=== PATIENT | female | born 1970 | race Two or more races ===

== ENCOUNTER 2018-03-27 09:55 | Emergency (ER) | payer OTHER ==
[~2018-03-27] VITALS: Ht 162.6 cm; Wt 59.0 kg
[2018-03-27] MEDS ORDERED: SIMVASTATIN5 MG PO (10:17)
[2018-03-27] MEDS ORDERED: METOPROLOL SUCC50 MG PO (10:17)
== END 2018-03-27 15:49 | disposition home or self-care (01) ==
LOC: ER 09:55
DX: K29.70 Gastritis, unspecified, without bleeding (principal)

== ENCOUNTER 2019-01-17 12:02 | Emergency (ER) | payer OTHER ==
[~2019-01-17] VITALS: Ht 160 cm; Wt 61.7 kg
[~2019-01-17 12:02] MED LIST: METOPROLOL SUCC50 MG PO; SIMVASTATIN5 MG PO
== END 2019-01-17 20:14 | disposition home or self-care (01) ==
LOC: ER 12:02
DX: K29.70 Gastritis, unspecified, without bleeding (principal)

== ENCOUNTER 2021-11-17 09:17 | Emergency (ER) | payer OTHER ==
[~2021-11-17] VITALS: Ht 162.6 cm; Wt 63.5 kg
[2021-11-17] MEDS ORDERED: NIFEDIPINE20 MG ×2 (09:30→09:31)
[2021-11-17] MEDS ORDERED: PLAVIX75 MG PO (09:30)
[2021-11-17] MEDS ORDERED: SKELAGESIC PO (14:08)
[2021-11-17] MEDS ORDERED: ORPHENADRINE C100 MG PO (14:08)
== END 2021-11-17 14:40 | disposition home or self-care (01) ==
LOC: ER 09:17
DX: G43.809 Other migraine, not intractable, without status migrainosus (principal); G44.89 Other headache syndrome; E86.0 Dehydration; M54.2 Cervicalgia; M62.838 Other muscle spasm; Z03.818 Encounter for observation for suspected exposure to other biological agents ruled out

== ENCOUNTER 2022-01-02 09:59 | Emergency (ER) | payer OTHER ==
[~2022-01-02] VITALS: Ht 162.6 cm; Wt 63.5 kg
[~2022-01-02 09:59] MED LIST changes: +NIFEDIPINE20 MG; +ORPHENADRINE C100 MG PO; +PLAVIX75 MG PO; +SKELAGESIC PO
[2022-01-02] MEDS ORDERED: NIFEDIPINE20 MG ×2 (10:27→10:28)
[2022-01-02] MEDS ORDERED: TOPROL XL100 MG PO (10:27)
[2022-01-02] MEDS ORDERED: SIMVASTATIN10 MG PO (10:28)
== END 2022-01-02 13:34 | disposition home or self-care (01) ==
LOC: ER 09:59
DX: N39.0 Urinary tract infection, site not specified (principal); G43.909 Migraine, unspecified, not intractable, without status migrainosus; Z88.0 Allergy status to penicillin

== ENCOUNTER 2022-05-12 10:02 | Emergency (ER) | payer OTHER ==
[~2022-05-12] VITALS: Ht 162.6 cm; Wt 63.5 kg
[~2022-05-12 10:02] MED LIST changes: +SIMVASTATIN10 MG PO; +TOPROL XL100 MG PO
[2022-05-12] MEDS ORDERED: NIFE60TA3 PO (10:24)
[2022-05-12] MEDS ORDERED: TOPROL XL200 MG PO (10:24)
[2022-05-12] MEDS ORDERED: NIFEDIPINE10 MG (10:25)
[2022-05-12] MEDS ORDERED: PLAVIX75 MG PO (10:25)
== END 2022-05-12 12:35 | disposition home or self-care (01) ==
LOC: ER 10:02
DX: M25.512 Pain in left shoulder (principal); Z88.0 Allergy status to penicillin; Z91.041 Radiographic dye allergy status

== ENCOUNTER 2022-08-14 10:32 | Emergency (ER) | payer OTHER ==
[~2022-08-14] VITALS: Ht 162.6 cm; Wt 63.5 kg
[~2022-08-14 10:32] MED LIST changes: +NIFE60TA3 PO; +NIFEDIPINE10 MG; +TOPROL XL200 MG PO
[2022-08-14] MEDS ORDERED: HYDROCHLOROTH12.5 MG PO (11:05)
[2022-08-14] MEDS ORDERED: CARVEDILOL ER40 MG PO (11:05)
== END 2022-08-14 14:57 | disposition home or self-care (01) ==
LOC: ER 10:32
DX: R19.7 Diarrhea, unspecified (principal); Z88.0 Allergy status to penicillin; Z91.041 Radiographic dye allergy status; Z88.2 Allergy status to sulfonamides; Z91.013 Allergy to seafood; Z88.6 Allergy status to analgesic agent; I10 Essential (primary) hypertension; Z86.72 Personal history of thrombophlebitis; M62.830 Muscle spasm of back

== ENCOUNTER 2022-09-18 07:34 | Emergency (ER) | payer OTHER ==
[~2022-09-18] VITALS: Ht 162.6 cm; Wt 63.5 kg
[~2022-09-18 07:34] MED LIST changes: +CARVEDILOL ER40 MG PO; +CARVEDILOL12.5 MG; +COZAAR50 MG PO; +HYDROCHLOROTH12.5 MG PO; +SIMVASTATIN40 MG PO; +TOPROL XL50 M1 PO
[2022-09-18] MEDS ORDERED: INTESTINEX680 M1 PO (11:49)
[2022-09-18] MEDS ORDERED: CETIRIZINE HCL10 MG PO (11:49)
[2022-09-18] MEDS ORDERED: CLINDAMYCIN HC300 MG PO (11:49)
== END 2022-09-18 11:51 ==
LOC: ER 07:34
DX: L03.112 Cellulitis of left axilla (principal); Z86.718 Personal history of other venous thrombosis and embolism; Z86.16 Personal history of COVID-19

== ENCOUNTER 2022-09-25 12:04 | Emergency (ER) | payer OTHER ==
[~2022-09-25] VITALS: Ht 162.6 cm; Wt 63.5 kg
[~2022-09-25 12:04] MED LIST changes: +CETIRIZINE HCL10 MG PO; +CLINDAMYCIN HC300 MG PO; +INTESTINEX680 M1 PO
== END 2022-09-25 18:15 | disposition home or self-care (01) ==
LOC: ER 12:04
DX: K52.9 Noninfective gastroenteritis and colitis, unspecified (principal); I10 Essential (primary) hypertension; Z88.0 Allergy status to penicillin; Z91.041 Radiographic dye allergy status

== ENCOUNTER 2022-10-22 07:37 | Emergency (ER) | payer OTHER ==
[~2022-10-22] VITALS: Ht 162.6 cm; Wt 63.5 kg
== END 2022-10-22 11:45 | disposition home or self-care (01) ==
LOC: ER 07:37
DX: B34.9 Viral infection, unspecified (principal); I10 Essential (primary) hypertension; Z88.0 Allergy status to penicillin; Z91.041 Radiographic dye allergy status; Z20.822 Contact with and (suspected) exposure to COVID-19

== ENCOUNTER 2022-10-29 08:19 | Emergency (ER) | payer OTHER ==
[~2022-10-29] VITALS: Ht 162.6 cm; Wt 63.5 kg
[2022-10-29] MEDS ORDERED: NORFLEX100MG PO (11:49)
[2022-10-29] MEDS ORDERED: TRAMADOL HCL50 MG PO (11:49)
== END 2022-10-29 11:56 | disposition home or self-care (01) ==
LOC: ER 08:19
DX: M25.561 Pain in right knee (principal); Z91.040 Latex allergy status; Z88.6 Allergy status to analgesic agent; Z88.0 Allergy status to penicillin; Z91.013 Allergy to seafood; Z88.2 Allergy status to sulfonamides; I10 Essential (primary) hypertension

== ENCOUNTER 2022-11-17 08:12 | Emergency (ER) | payer OTHER ==
[~2022-11-17] VITALS: Ht 170.2 cm; Wt 77.6 kg
[~2022-11-17 08:12] MED LIST changes: +NORFLEX100MG PO; +TRAMADOL HCL50 MG PO
== END 2022-11-17 18:57 | disposition home or self-care (01) ==
LOC: ER 08:12
DX: R10.9 Unspecified abdominal pain (principal); K76.0 Fatty (change of) liver, not elsewhere classified; I10 Essential (primary) hypertension; Z91.041 Radiographic dye allergy status; Z88.0 Allergy status to penicillin; R11.2 Nausea with vomiting, unspecified; Z20.822 Contact with and (suspected) exposure to COVID-19

== ENCOUNTER 2022-12-08 08:56 | Emergency (ER) | payer OTHER ==
[~2022-12-08] VITALS: Ht 162.6 cm; Wt 63.5 kg
[2022-12-08] MEDS ORDERED: NORFLEX100MG PO (11:01)
== END 2022-12-08 11:07 | disposition home or self-care (01) ==
LOC: ER 08:56
DX: M25.512 Pain in left shoulder (principal)

== ENCOUNTER 2022-12-25 07:15 | Emergency (ER) | payer OTHER ==
[~2022-12-25] VITALS: Ht 162.6 cm; Wt 63.5 kg
[2022-12-25] MEDS ORDERED: SKELAGESIC PO (12:19)
[2022-12-25] MEDS ORDERED: ORPHENADRINE C100 MG PO (12:19)
[2022-12-25] MEDS ORDERED: MUPIROCIN15 GM TOP (12:19)
== END 2022-12-25 13:25 ==
LOC: ER 07:15
DX: M79.662 Pain in left lower leg (principal); M62.830 Muscle spasm of back; I10 Essential (primary) hypertension; L08.9 Local infection of the skin and subcutaneous tissue, unspecified; Z88.0 Allergy status to penicillin; Z91.041 Radiographic dye allergy status

== ENCOUNTER 2023-01-23 13:10 | Emergency (ER) | payer OTHER ==
[~2023-01-23] VITALS: Ht 162.6 cm; Wt 68.0 kg
[~2023-01-23 13:10] MED LIST changes: +MUPIROCIN15 GM TOP
[2023-01-23] MEDS ORDERED: NORFLEX100MG PO (15:59)
== END 2023-01-23 17:04 | disposition home or self-care (01) ==
LOC: ER 13:10
DX: M25.562 Pain in left knee (principal); Z88.2 Allergy status to sulfonamides; Z91.041 Radiographic dye allergy status; Z88.0 Allergy status to penicillin; Z91.013 Allergy to seafood; Z88.6 Allergy status to analgesic agent

== ENCOUNTER 2023-01-30 10:11 | Emergency (ER) | payer OTHER ==
[~2023-01-30] VITALS: Ht 162.6 cm; Wt 63.5 kg
[2023-01-30] MEDS ORDERED: COZAAR100 MG PO (10:25)
[2023-01-30] MEDS ORDERED: TOPROL XL100 M1 PO (10:26)
[2023-01-30] MEDS ORDERED: CRESTOR40 MG PO (10:26)
[2023-01-30] MEDS ORDERED: PEPCID AC20 MG (10:26)
[2023-01-30] MEDS ORDERED: PRILOSEC OTC20 MG PO (10:27)
== END 2023-01-30 15:45 | disposition home or self-care (01) ==
LOC: ER 10:11
DX: K29.60 Other gastritis without bleeding (principal); Z88.0 Allergy status to penicillin; Z91.041 Radiographic dye allergy status; R10.9 Unspecified abdominal pain; R16.0 Hepatomegaly, not elsewhere classified; K76.0 Fatty (change of) liver, not elsewhere classified

== ENCOUNTER 2023-03-25 08:03 | Emergency (ER) | payer OTHER ==
[~2023-03-25] VITALS: Ht 162.6 cm; Wt 63.5 kg
[~2023-03-25 08:03] MED LIST changes: +COZAAR100 MG PO; +CRESTOR40 MG PO; +PEPCID AC20 MG; +PRILOSEC OTC20 MG PO; +TOPROL XL100 M1 PO
== END 2023-03-25 11:54 | disposition home or self-care (01) ==
LOC: ER 08:03
DX: N39.0 Urinary tract infection, site not specified (principal); I10 Essential (primary) hypertension; Z88.0 Allergy status to penicillin; Z91.041 Radiographic dye allergy status

== ENCOUNTER 2023-05-01 12:54 | Emergency (ER) | payer OTHER ==
[~2023-05-01] VITALS: Ht 162.6 cm; Wt 63.5 kg
[2023-05-01] MEDS ORDERED: ZYRTEC10 MG PO (15:35)
[2023-05-01] MEDS ORDERED: TUSNEL LIQUID178 ML PO (15:35)
[2023-05-01] MEDS ORDERED: ZITHROMAX500 MG PO (15:35)
== END 2023-05-01 16:07 | disposition home or self-care (01) ==
LOC: ER 12:54
DX: J06.9 Acute upper respiratory infection, unspecified (principal); R53.81 Other malaise; Z20.822 Contact with and (suspected) exposure to COVID-19; Z91.041 Radiographic dye allergy status; Z88.0 Allergy status to penicillin

== ENCOUNTER 2023-05-29 12:20 | Emergency (ER) | payer OTHER ==
[~2023-05-29] VITALS: Ht 162.6 cm; Wt 63.5 kg
[~2023-05-29 12:20] MED LIST changes: +TUSNEL LIQUID178 ML PO; +ZITHROMAX500 MG PO; +ZYRTEC10 MG PO
[2023-05-29] MEDS ORDERED: DOLOGESIC 500-1 EACH PO (14:51)
== END 2023-05-29 15:05 | disposition home or self-care (01) ==
LOC: ER 12:20
DX: M25.561 Pain in right knee (principal)

== ENCOUNTER 2023-08-19 14:56 | Emergency (ER) | payer OTHER ==
[~2023-08-19] VITALS: Ht 162.6 cm; Wt 59.0 kg
[~2023-08-19 14:56] MED LIST changes: +DOLOGESIC 500-1 EACH PO; +PROBIOTIC1 EAC4
[2023-08-19 20:17] LABS: HEMATOCRIT 40.9 % (36.0-45.00); HEMOGLOBIN 13.5 g/dL (12.0-15.00); MEAN CELL VOLUME 94.7 fL (80.00-100.00); MEAN CORPUSCULAR HEMOGLOBIN 31.2 pg (27.00-32.0); PLATELET COUNT 353 K/uL (150-450); RED BLOOD COUNT 4.32 M/uL (4.00-6.00); RED CELL DISTRIBUTION WIDTH 14.2 % (11.5-14.5)
[2023-08-19 20:27] LABS: URINE APPEARANCE Cloudy; URINE BILIRRUBIN Negative (NEGATIVE); URINE BLOOD Small; URINE COLOR Yellow; URINE GLUCOSE Negative (NEGATIVE); URINE LEUKOCYTE Small; URINE NITRATE Negative; URINE PROTEIN Trace (NEGATIVE)
[2023-08-19 20:30] LABS: URINE BACTERIA 2703.9 uL (0.0-1933); URINE EPITHELIAL CELLS 86.5 uL (0.0-38.8); URINE RBC 10.4 uL (0.0-20.8); URINE WBC 100.6 uL (0.0-23.2)
[2023-08-19] MEDS ORDERED: CIPRO500 MG PO (22:05)
[2023-08-19] MEDS ORDERED: PEPCID AC20 MG PO (22:08)
[2023-08-19] MEDS ORDERED: OMEPRAZOLE20 M1 PO (22:08)
[2023-08-19] MEDS ORDERED: TAMS0.4C PO (22:12)
== END 2023-08-19 22:35 | disposition home or self-care (01) ==
LOC: ER 14:57
PROVIDERS: Nurse Practitioner Family
DX: M54.50 Low back pain, unspecified (principal); N39.0 Urinary tract infection, site not specified

== ENCOUNTER 2023-08-29 12:01 | Emergency (ER) | payer OTHER ==
[~2023-08-29] VITALS: Ht 162.6 cm; Wt 59.0 kg
[~2023-08-29 12:01] MED LIST changes: +CIPRO500 MG PO; +OMEPRAZOLE20 M1 PO; +PEPCID AC20 MG PO; +TAMS0.4C PO
[2023-08-29 15:22] LABS: URINE APPEARANCE Cloudy; URINE BILIRRUBIN Negative (NEGATIVE); URINE BLOOD Trace; URINE COLOR Yellow; URINE GLUCOSE Negative (NEGATIVE); URINE LEUKOCYTE Trace; URINE NITRATE Negative; URINE PROTEIN Trace (NEGATIVE)
[2023-08-29 15:23] LABS: URINE BACTERIA 3537.9 uL (0.0-1933); URINE EPITHELIAL CELLS 73.5 uL (0.0-38.8); URINE RBC 28.8 uL (0.0-20.8); URINE WBC 57.1 uL (0.0-23.2)
[2023-08-29 15:40] LABS: URINE CRYSTALS MODERATE /HPF
[2023-08-29 15:42] LABS: HEMATOCRIT 42.8 % (36.0-45.00); HEMOGLOBIN 14.1 g/dL (12.0-15.00); MEAN CELL VOLUME 95.1 fL (80.00-100.00); MEAN CORPUSCULAR HEMOGLOBIN 31.3 pg (27.00-32.0); MEAN CORPUSCULAR HGB CONC 32.9 g/dl (32.0-36.0); PLATELET COUNT 337 K/uL (150-450); RED CELL DISTRIBUTION WIDTH 14.1 % (11.5-14.5)
[2023-08-29 17:58] LABS: CALCIUM 8.6 mg/dL (8.5-10.1); CREATININE SERUM 0.52 mg/dL (0.55-1.02); GFR 124.32; POTASSIUM 3.47 mEq/L (3.5-5.1)
== END 2023-08-29 19:18 | disposition home or self-care (01) ==
LOC: ER 12:01
PROVIDERS: General Practice
DX: N39.0 Urinary tract infection, site not specified (principal); Z88.0 Allergy status to penicillin; Z88.8 Allergy status to other drugs, medicaments and biological substances

== ENCOUNTER 2023-09-07 11:21 | Emergency (ER) | payer OTHER ==
[~2023-09-07] VITALS: Ht 165.1 cm; Wt 59.0 kg
[2023-09-07 14:41] LABS: ALBUMIN 3.1 gm/dL (3.4-5.0); BILIRUBIN TOTAL 0.61 mg/dL (0.3-1.2); CALCIUM 9.1 mg/dL (8.5-10.1); CREATININE SERUM 0.68 mg/dL (0.55-1.02); GFR 91.22; GLOBULINA 3.9 G/DL (2.4-3.5); POTASSIUM 4.07 mEq/L (3.5-5.1)
[2023-09-07 15:37] LABS: PH,URINE 6.5 (5.0-8.0); URINE APPEARANCE Cloudy; URINE BILIRRUBIN Negative (NEGATIVE); URINE BLOOD Negative; URINE COLOR Yellow; URINE GLUCOSE Negative (NEGATIVE); URINE LEUKOCYTE Moderate; URINE NITRATE Negative; URINE PROTEIN Negative (NEGATIVE); URINE UROBILINOGEN 0.2 E.U./dl
[2023-09-07 15:42] LABS: URINE BACTERIA 1858.4 uL (0.0-1933); URINE EPITHELIAL CELLS 123.2 uL (0.0-38.8); URINE RBC 4.5 uL (0.0-20.8); URINE WBC 76.3 uL (0.0-23.2)
[2023-09-07 16:49] LABS: HEMATOCRIT 45.5 % (36.0-45.00); HEMOGLOBIN 15.2 g/dL (12.0-15.00); MEAN CELL VOLUME 95.6 fL (80.00-100.00); MEAN CORPUSCULAR HGB CONC 33.5 g/dl (32.0-36.0); PLATELET COUNT 329 K/uL (150-450); RED BLOOD COUNT 4.76 M/uL (4.00-6.00); RED CELL DISTRIBUTION WIDTH 14.2 % (11.5-14.5)
== END 2023-09-07 22:47 | disposition home or self-care (01) ==
LOC: ER 11:21
PROVIDERS: General Practice
DX: N39.0 Urinary tract infection, site not specified (principal); K29.70 Gastritis, unspecified, without bleeding; Z88.0 Allergy status to penicillin; Z91.041 Radiographic dye allergy status

== ENCOUNTER 2023-10-02 13:11 | Emergency (ER) | payer OTHER ==
[~2023-10-02] VITALS: Ht 162.6 cm; Wt 63.5 kg
[2023-10-02 17:00] LABS: HEMATOCRIT 42.4 % (36.0-45.00); HEMOGLOBIN 14.4 g/dL (12.0-15.00); MEAN CELL VOLUME 92.8 fL (80.00-100.00); MEAN CORPUSCULAR HEMOGLOBIN 31.6 pg (27.00-32.0); PLATELET COUNT 439 K/uL (150-450); RED BLOOD COUNT 4.57 M/uL (4.00-6.00); RED CELL DISTRIBUTION WIDTH 14.1 % (11.5-14.5)
[2023-10-02] MEDS ORDERED: PERCOGESIC EXT1 EACH PO (18:02)
[2023-10-02] MEDS ORDERED: FAMCICLOVIR500 MG PO (18:02)
== END 2023-10-02 18:22 | disposition home or self-care (01) ==
LOC: ER 13:12
PROVIDERS: General Practice
DX: B02.9 Zoster without complications (principal); R11.10 Vomiting, unspecified; Z88.0 Allergy status to penicillin; Z91.041 Radiographic dye allergy status; I10 Essential (primary) hypertension

== ENCOUNTER 2023-11-11 10:12 | Emergency (ER) | payer OTHER ==
[~2023-11-11] VITALS: Ht 160 cm; Wt 65.8 kg
[~2023-11-11 10:12] MED LIST changes: +FAMCICLOVIR500 MG PO; +PERCOGESIC EXT1 EACH PO
[2023-11-11] MEDS ORDERED: NORFLEX100MG PO (18:39)
== END 2023-11-11 18:50 | disposition home or self-care (01) ==
LOC: ER 10:14
DX: M62.838 Other muscle spasm (principal); M25.512 Pain in left shoulder; I10 Essential (primary) hypertension; Z88.8 Allergy status to other drugs, medicaments and biological substances

== ENCOUNTER 2023-12-10 21:29 | Emergency (ER) | payer OTHER ==
[~2023-12-10] VITALS: Ht 162.6 cm; Wt 79.4 kg
[2023-12-10] MEDS ORDERED: METOPROLOL TARTRATE 25 MG TABLET PO ONE (22:30)
[2023-12-10 23:19] LABS: HEMATOCRIT 40.1 % (36.0-45.00); HEMOGLOBIN 13.4 g/dL (12.0-15.00); MEAN CELL VOLUME 91.6 fL (80.00-100.00); MEAN CORPUSCULAR HEMOGLOBIN 30.6 pg (27.00-32.0); MEAN CORPUSCULAR HGB CONC 33.4 g/dl (32.0-36.0); PLATELET COUNT 332 K/uL (150-450); RED BLOOD COUNT 4.38 M/uL (4.00-6.00); RED CELL DISTRIBUTION WIDTH 14.1 % (11.5-14.5)
[2023-12-11] LABS: ALBUMIN 3.4 gm/dL (3.4-5.0); BILIRUBIN TOTAL 0.45 mg/dL (0.3-1.2); CREATININE SERUM 0.68 mg/dL (0.55-1.02); GFR 91.22; GLOBULINA 4.1 G/DL (2.4-3.5); POTASSIUM 3.93 mEq/L (3.5-5.1); TOTAL PROTEIN 7.5 gm/dL (6.4-8.2)
[2023-12-11] MEDS ORDERED: METHYLPREDNISOLONE SOD SUCC 125 MG VIAL IM ONE (01:00)
[2023-12-11] MEDS ORDERED: DIPHENHYDRAMINE HCL 50 MG/ML VIAL 1ML IM ONE (01:00)
== END 2023-12-11 01:14 | disposition home or self-care (01) ==
LOC: ER 21:29
PROVIDERS: Emergency Medicine
DX: G43.809 Other migraine, not intractable, without status migrainosus (principal); R00.0 Tachycardia, unspecified; Z91.013 Allergy to seafood; Z91.041 Radiographic dye allergy status; Z88.2 Allergy status to sulfonamides; Z88.6 Allergy status to analgesic agent; Z88.0 Allergy status to penicillin
CPT/HCPCS: 36415; 93005; 96372; 99282; J1200; J2930

== ENCOUNTER 2024-06-23 14:46 | Emergency (ER) | payer OTHER ==
[~2024-06-23] VITALS: Ht 162.6 cm; Wt 65.8 kg
[2024-06-23] MEDS ORDERED: CORLANOR5 MG (15:01)
[2024-06-23] MEDS ORDERED: PROMETHAZINE HCL 25 MG/ML AMPUL IM STA (16:46)
[2024-06-23] MEDS ORDERED: TRAMADOL HCL 50 MG TABLET PO STA (16:52)
[2024-06-23] MEDS ORDERED: PROMETHAZINE HCL 25 MG/ML AMPUL ONE (17:08)
[2024-06-23 17:11] LABS: HEMATOCRIT 38.4 % (36.0-45.00); MEAN CELL VOLUME 89.4 fL (80.00-100.00); MEAN CORPUSCULAR HEMOGLOBIN 30.2 pg (27.00-32.0); MEAN CORPUSCULAR HGB CONC 33.8 g/dl (32.0-36.0); PLATELET COUNT 376 K/uL (150-450); RED BLOOD COUNT 4.29 M/uL (4.00-6.00); RED CELL DISTRIBUTION WIDTH 14.2 % (11.5-14.5)
[2024-06-23 17:19] LABS: PH,URINE 5.5 (5.0-8.0); URINE BILIRRUBIN Negative (NEGATIVE); URINE BLOOD Negative; URINE COLOR Yellow; URINE GLUCOSE Negative (NEGATIVE); URINE KETONE Negative (NEGATIVE); URINE LEUKOCYTE Negative; URINE NITRATE Negative; URINE PROTEIN Negative (NEGATIVE); URINE UROBILINOGEN 0.2 E.U./dl
[2024-06-23 17:23] LABS: URINE BACTERIA 686.6 uL (0.0-1933); URINE EPITHELIAL CELLS 71.8 uL (0.0-38.8); URINE RBC 3.5 uL (0.0-20.8); URINE WBC 64.1 uL (0.0-23.2)
[2024-06-23 17:35] LABS: ALBUMIN 3.7 gm/dL (3.4-5.0); BILIRUBIN TOTAL 0.56 mg/dL (0.3-1.2); CALCIUM 9.3 mg/dL (8.5-10.1); CREATININE SERUM 0.74 mg/dL (0.55-1.02); GFR 82.41; GLOBULINA 3.8 G/DL (2.4-3.5); POTASSIUM 3.46 mEq/L (3.5-5.1); TOTAL PROTEIN 7.5 gm/dL (6.4-8.2)
[2024-06-23 17:58] LABS: URINE CAST 1.06 uL (0.0-1.40); URINE CRYSTALS FEW /HPF
[2024-06-23 17:59] LABS: URINE APPEARANCE CLEAR; URINE MUCUS MODERATE
[2024-06-23] MEDS ORDERED: DEXAMETHASONE4 MG PO (19:51)
== END 2024-06-23 20:26 | disposition home or self-care (01) ==
LOC: ER 14:47
PROVIDERS: General Practice
DX: R10.31 Right lower quadrant pain (principal); I10 Essential (primary) hypertension; Z88.0 Allergy status to penicillin; Z88.2 Allergy status to sulfonamides; Z88.6 Allergy status to analgesic agent; Z91.041 Radiographic dye allergy status

== ENCOUNTER 2024-09-10 08:36 | Emergency (ER) | payer OTHER ==
[~2024-09-10] VITALS: Ht 162.6 cm; Wt 65.8 kg
[~2024-09-10 08:36] MED LIST changes: +CORLANOR5 MG; +DEXAMETHASONE4 MG PO
[2024-09-10] MEDS ORDERED: PROMETHAZINE HCL 50 MG/ML AMPUL IM ONE (09:15)
[2024-09-10] MEDS ORDERED: ORPHENADRINE CITRATE 30 MG/ML AMPUL IM ONE (09:15)
[2024-09-10] MEDS ORDERED: DIPHENHYDRAMINE HCL 50 MG/ML VIAL 1ML IM ONE (09:15)
[2024-09-10] MEDS ORDERED: DEXAMETHASONE SODIUM PHOSPHATE 4 MG/ML VIAL IM ONE (09:15)
[2024-09-10 09:58] LABS: HEMATOCRIT 42.2 % (36.0-45.00); HEMOGLOBIN 14.6 g/dL (12.0-15.00); MEAN CELL VOLUME 89.8 fL (80.00-100.00); MEAN CORPUSCULAR HGB CONC 34.6 g/dl (32.0-36.0); PLATELET COUNT 400 K/uL (150-450); RED CELL DISTRIBUTION WIDTH 14.9 % (11.5-14.5)
[2024-09-10 10:17] LABS: ALBUMIN 3.7 gm/dL (3.4-5.0); BILIRUBIN TOTAL 0.54 mg/dL (0.3-1.2); CALCIUM 9.1 mg/dL (8.5-10.1); CREATININE SERUM 0.68 mg/dL (0.55-1.02); GFR 90.86; POTASSIUM 3.49 mEq/L (3.5-5.1); TOTAL PROTEIN 7.7 gm/dL (6.4-8.2)
[2024-09-10] MEDS ORDERED: PEPCID AC20 MG PO (10:31)
[2024-09-10] MEDS ORDERED: BUTALB-ACETAMI1 EAC2 PO (10:31)
[2024-09-10] MEDS ORDERED: ZOFRAN8 MG PO (10:31)
[2024-09-10 10:43] VITALS: BP 165/85; O2SAT 98
== END 2024-09-10 10:44 | disposition home or self-care (01) ==
LOC: ER 08:38
PROVIDERS: General Practice
DX: G43.909 Migraine, unspecified, not intractable, without status migrainosus (principal); Z20.822 Contact with and (suspected) exposure to COVID-19; I10 Essential (primary) hypertension; Z88.6 Allergy status to analgesic agent; Z88.0 Allergy status to penicillin; Z88.2 Allergy status to sulfonamides; Z88.8 Allergy status to other drugs, medicaments and biological substances

== ENCOUNTER 2024-09-21 14:17 | Emergency (ER) | payer OTHER ==
[~2024-09-21] VITALS: Ht 162.6 cm; Wt 65.8 kg
[~2024-09-21 14:17] MED LIST changes: +BUTALB-ACETAMI1 EAC2 PO; +ZOFRAN8 MG PO
[2024-09-21] MEDS ORDERED: ORPHENADRINE CITRATE 30 MG/ML AMPUL IM STA (17:55)
[2024-09-21] MEDS ORDERED: DEXAMETHASONE SODIUM PHOSPHATE 4 MG/ML VIAL IM STA (17:55)
[2024-09-21] MEDS ORDERED: DIPHENHYDRAMINE HCL 50 MG/ML VIAL 1ML IM STA (17:55)
[2024-09-21] MEDS ORDERED: ORPHENADRINE CITRATE 100 MG TABLET PO ONE (18:45)
== END 2024-09-21 18:53 | disposition home or self-care (01) ==
LOC: ER 14:19
DX: M54.2 Cervicalgia (principal); Z88.0 Allergy status to penicillin; Z88.2 Allergy status to sulfonamides; Z88.6 Allergy status to analgesic agent; Z91.041 Radiographic dye allergy status

== ENCOUNTER 2024-10-06 11:36 | Emergency (ER) | payer OTHER ==
[~2024-10-06] VITALS: Ht 162.6 cm; Wt 65.8 kg
[2024-10-06] MEDS ORDERED: LABETALOL HCL 200 MG/40 ML VIAL IV ONE (13:00)
[2024-10-06] MEDS ORDERED: 0.9 % SODIUM CHLORIDE 1,000 ML IV ONE (13:00)
[2024-10-06] MEDS ORDERED: BUTALB/ACETAMINOPHEN/CAFFEINE 1 TAB TABLET PO ONE (13:15)
[2024-10-06 14:15] LABS: HEMATOCRIT 41.6 % (36.0-45.00); HEMOGLOBIN 14.2 g/dL (12.0-15.00); MEAN CORPUSCULAR HGB CONC 34.1 g/dl (32.0-36.0); PLATELET COUNT 323 K/uL (150-450); RED BLOOD COUNT 4.57 M/uL (4.00-6.00); RED CELL DISTRIBUTION WIDTH 14.8 % (11.5-14.5)
[2024-10-06 14:43] LABS: INR 0.96; PARTIAL THROMBOPLASTIN TIME 26.5 SECONDS (22.0-34.0); PROTHROMBIN TIME 10.5 SECONDS (9.0-11.5)
[2024-10-06 14:49] LABS: ALBUMIN 3.2 gm/dL (3.4-5.0); BILIRUBIN TOTAL 0.37 mg/dL (0.3-1.2); CALCIUM 8.7 mg/dL (8.5-10.1); CREATININE SERUM 0.57 mg/dL (0.55-1.02); GFR 111.38; GLOBULINA 3.9 G/DL (2.4-3.5); POTASSIUM 4.01 mEq/L (3.5-5.1); TOTAL PROTEIN 7.1 gm/dL (6.4-8.2)
== END 2024-10-06 17:50 | disposition home or self-care (01) ==
LOC: ER 11:38
PROVIDERS: General Practice
DX: I10 Essential (primary) hypertension (principal); R00.2 Palpitations; Z88.6 Allergy status to analgesic agent; Z88.0 Allergy status to penicillin; Z88.2 Allergy status to sulfonamides; Z88.8 Allergy status to other drugs, medicaments and biological substances

== ENCOUNTER 2024-11-23 17:26 | Emergency (ER) | payer OTHER ==
[~2024-11-23] VITALS: Ht 162.6 cm; Wt 90.7 kg
[2024-11-23] MEDS ORDERED: FAMOtidine 10 MG/ML (4ML VIAL) IV ONE (19:15)
[2024-11-23] MEDS ORDERED: DEXAMETHASONE SODIUM PHOSP/PF 10 MG/ML VIAL IV ONE (19:15)
[2024-11-23] MEDS ORDERED: BUTALB/ACETAMINOPHEN/CAFFEINE 1 TAB TABLET PO ONE ×2 (19:15→19:35)
[2024-11-23] MEDS ORDERED: ONDANSETRON HCL 2 MG/ML VIAL IV ONE (19:15)
[2024-11-23] MEDS ORDERED: DIPHENHYDRAMINE HCL 50 MG/ML VIAL 1ML IV ONE (19:15)
[2024-11-23] MEDS ORDERED: DIPHENHYDRAMINE HCL 50 MG/ML VIAL 1ML ONE (19:34)
[2024-11-23] MEDS ORDERED: DEXAMETHASONE SODIUM PHOSPHATE 4 MG/ML VIAL ONE (19:35)
[2024-11-23] MEDS ORDERED: ONDANSETRON HCL 2 MG/ML VIAL ONE (19:35)
[2024-11-23] MEDS ORDERED: FAMOTIDINE/PF 20 MG/2 ML VIAL ONE (19:35)
[2024-11-23 20:25] LABS: HEMATOCRIT 41.3 % (36.0-45.00); HEMOGLOBIN 13.7 g/dL (12.0-15.00); MEAN CELL VOLUME 93.1 fL (80.00-100.00); MEAN CORPUSCULAR HGB CONC 33.2 g/dl (32.0-36.0); PLATELET COUNT 352 K/uL (150-450); RED BLOOD COUNT 4.43 M/uL (4.00-6.00); RED CELL DISTRIBUTION WIDTH 14.7 % (11.5-14.5)
[2024-11-23 20:50] LABS: ALBUMIN 3.2 gm/dL (3.4-5.0); BILIRUBIN TOTAL 0.73 mg/dL (0.3-1.2); CREATININE SERUM 0.85 mg/dL (0.55-1.02); GFR 70.23; GLOBULINA 3.5 G/DL (2.4-3.5); POTASSIUM 4.43 mEq/L (3.5-5.1); TOTAL PROTEIN 6.7 gm/dL (6.4-8.2)
[2024-11-23] MEDS ORDERED: PROMETHAZINE HCL 50 MG/ML AMPUL IM STA (23:26)
[2024-11-23] MEDS ORDERED: PROMETHAZINE HCL 50 MG/ML AMPUL IM ONE (23:29)
[2024-11-24] MEDS ORDERED: CIPRO500 MG PO (00:23)
[2024-11-24] MEDS ORDERED: ZOFRAN8 MG PO (00:23)
[2024-11-24] MEDS ORDERED: BUTALBIT-ACETA1 EACH PO (00:23)
[2024-11-24] MEDS ORDERED: METRONIDAZOLE500 MG PO (00:23)
[2024-11-24] MEDS ORDERED: TRAMADOL HCL 50 MG TABLET PO ONE (00:30)
== END 2024-11-24 01:05 | disposition home or self-care (01) ==
LOC: ER 17:28
PROVIDERS: General Practice
DX: K52.89 Other specified noninfective gastroenteritis and colitis (principal); R53.81 Other malaise; Z20.822 Contact with and (suspected) exposure to COVID-19; Z88.6 Allergy status to analgesic agent; Z88.0 Allergy status to penicillin; Z88.2 Allergy status to sulfonamides; Z88.8 Allergy status to other drugs, medicaments and biological substances; I10 Essential (primary) hypertension

== ENCOUNTER 2025-01-06 16:23 | Emergency (ER) | payer OTHER ==
[~2025-01-06] VITALS: Ht 162.6 cm; Wt 65.8 kg
[~2025-01-06 16:23] MED LIST changes: +BUTALBIT-ACETA1 EACH PO; +METRONIDAZOLE500 MG PO
[2025-01-06] MEDS ORDERED: CORLANOR5 MG PO (16:51)
[2025-01-06 16:52] VITALS: BP 150/80; O2SAT 98
[2025-01-06] MEDS ORDERED: METOCLOPRAMIDE HCL 5 MG/ML VIAL IM STA (17:50)
[2025-01-06] MEDS ORDERED: PROMETHAZINE HCL 25 MG/ML AMPUL IM STA (17:50)
[2025-01-06] MEDS ORDERED: FAMOtidine 10 MG/ML (4ML VIAL) IV PUSH STA (17:52)
== END 2025-01-06 20:54 | disposition home or self-care (01) ==
LOC: ER 16:26
DX: R07.89 Other chest pain (principal); K21.9 Gastro-esophageal reflux disease without esophagitis; Z91.041 Radiographic dye allergy status; Z91.013 Allergy to seafood; Z88.0 Allergy status to penicillin; Z88.2 Allergy status to sulfonamides; Z88.6 Allergy status to analgesic agent; R11.0 Nausea
CPT/HCPCS: 36415; 93005; 96365; 96372; 99283; J2250; J2765; J3490

== ENCOUNTER 2025-02-01 17:59 | Emergency (ER) | payer OTHER ==
[~2025-02-01] VITALS: Ht 162.6 cm; Wt 81.6 kg
[~2025-02-01 17:59] MED LIST changes: +CORLANOR5 MG PO
[2025-02-01] MEDS ORDERED: TRAMADOL HCL 50 MG TABLET PO ONE (22:45)
[2025-02-01 23:19] LABS: HEMATOCRIT 38.6 % (36.0-45.00); HEMOGLOBIN 12.8 g/dL (12.0-15.00); MEAN CELL VOLUME 90.3 fL (80.00-100.00); MEAN CORPUSCULAR HEMOGLOBIN 29.8 pg (27.00-32.0); PLATELET COUNT 409 K/uL (150-450); RED BLOOD COUNT 4.28 M/uL (4.00-6.00); RED CELL DISTRIBUTION WIDTH 14.6 % (11.5-14.5)
[2025-02-01 23:27] LABS: ERYTHROCYTE SEDIMENTATION RATE 42 mm/hr
[2025-02-02 00:17] LABS: PH,URINE 5.5 (5.0-8.0); URINE APPEARANCE Clear; URINE BILIRRUBIN Negative (NEGATIVE); URINE BLOOD Negative; URINE COLOR Yellow; URINE GLUCOSE Negative (NEGATIVE); URINE KETONE Negative (NEGATIVE); URINE LEUKOCYTE Trace; URINE NITRATE Negative; URINE PROTEIN Negative (NEGATIVE); URINE UROBILINOGEN 0.2 E.U./dl
[2025-02-02 00:23] LABS: URINE BACTERIA 2652.2 uL (0.0-1933); URINE EPITHELIAL CELLS 61.7 uL (0.0-38.8); URINE RBC 6.9 uL (0.0-20.8); URINE WBC 76.5 uL (0.0-23.2)
[2025-02-02 00:39] LABS: URINE CAST 0.29 uL (0.0-1.40)
[2025-02-02] MEDS ORDERED: MORPHINE SULFATE 4 MG/ML VIAL IV STA (02:45)
[2025-02-02] MEDS ORDERED: 0.9 % SODIUM CHLORIDE 1,000 ML IV STA (02:45)
[2025-02-02] MEDS ORDERED: CLINDAMYCIN PHOSPHATE 150 MG/ML (900mg) IV STA (02:47)
[2025-02-02 04:33] LABS: CALCIUM 8.7 mg/dL (8.5-10.1); CREATININE SERUM 0.74 mg/dL (0.55-1.02); GFR 82.41; INR < 0.93; PARTIAL THROMBOPLASTIN TIME 21.7 SECONDS (22.0-34.0); POTASSIUM 3.72 mEq/L (3.5-5.1)
[2025-02-02] MEDS ORDERED: DIPHENHYDRAMINE HCL 12.5 MG/5 ML BLIST.PACK PO STA (06:29)
== END 2025-02-02 06:42 | disposition home or self-care (01) ==
LOC: ER 18:00
PROVIDERS: Preventive Medicine Public Health & General Preventive Medicine
DX: R22.9 Localized swelling, mass and lump, unspecified (principal); Z88.6 Allergy status to analgesic agent; Z88.0 Allergy status to penicillin; Z88.2 Allergy status to sulfonamides; Z88.8 Allergy status to other drugs, medicaments and biological substances

== ENCOUNTER 2025-02-14 13:24 | Emergency (ER) | payer OTHER ==
[~2025-02-14] VITALS: Ht 162.6 cm; Wt 67.6 kg
[2025-02-14 13:59] VITALS: BP 138/93; O2SAT 98
[2025-02-14] MEDS ORDERED: ORPHENADRINE CITRATE 30 MG/ML AMPUL ONE (17:00)
[2025-02-14] MEDS ORDERED: ORPHENADRINE CITRATE 30 MG/ML AMPUL IM ONE (17:00)
[2025-02-14] MEDS ORDERED: DEXAMETHASONE SODIUM PHOSPHATE 4 MG/ML VIAL ONE (17:00)
[2025-02-14] MEDS ORDERED: TRAMADOL HCL 50 MG TABLET PO ONE (17:00)
[2025-02-14] MEDS ORDERED: DEXAMETHASONE SODIUM PHOSPHATE 4 MG/ML VIAL IM ONE (17:00)
[2025-02-14] MEDS ORDERED: BACLOFEN10 MG PO (17:24)
[2025-02-14] MEDS ORDERED: 8 HOUR650 MG PO (17:24)
== END 2025-02-14 18:23 | disposition home or self-care (01) ==
LOC: ER 13:25
DX: M54.50 Low back pain, unspecified (principal); I10 Essential (primary) hypertension; E78.49 Other hyperlipidemia; E16.1 Other hypoglycemia; Z88.0 Allergy status to penicillin; Z88.2 Allergy status to sulfonamides; Z88.6 Allergy status to analgesic agent; Z91.041 Radiographic dye allergy status
CPT/HCPCS: 96365; 99282; J1100; J2360

== ENCOUNTER 2025-03-13 11:49 | Emergency (ER) | payer OTHER ==
[~2025-03-13] VITALS: Ht 162.6 cm; Wt 67.6 kg
[~2025-03-13 11:49] MED LIST changes: +8 HOUR650 MG PO; +BACLOFEN10 MG PO
[2025-03-13] MEDS ORDERED: ORPHENADRINE CITRATE 30 MG/ML AMPUL ONE (15:40)
[2025-03-13] MEDS ORDERED: ORPHENADRINE CITRATE 30 MG/ML AMPUL IM ONE (15:45)
== END 2025-03-13 16:34 ==
LOC: ER 12:02
DX: M79.651 Pain in right thigh (principal); I10 Essential (primary) hypertension; Z88.6 Allergy status to analgesic agent; Z88.0 Allergy status to penicillin; Z88.2 Allergy status to sulfonamides; Z88.8 Allergy status to other drugs, medicaments and biological substances

== ENCOUNTER 2025-04-02 13:12 | Outpatient (CLI) | payer OTHER | END 2025-04-02 13:22 | disposition home or self-care (01) | LOC: SONOGRAMA 13:12 | PROVIDERS: ATTEND Specialist | DX: R22.40 Localized swelling, mass and lump, unspecified lower limb (principal); L98.9 Disorder of the skin and subcutaneous tissue, unspecified ==

== ENCOUNTER 2025-05-03 08:35 | Emergency (ER) | payer OTHER ==
[~2025-05-03] VITALS: Ht 162.6 cm; Wt 67.6 kg
[2025-05-03] MEDS ORDERED: ONDANSETRON HCL 2 MG/ML VIAL IV STA (09:06)
[2025-05-03] MEDS ORDERED: 0.9 % SODIUM CHLORIDE 1,000 ML IV STA (09:06)
[2025-05-03 10:02] LABS: BASO % 0.4 % (0.1-1.2); EOS # 0.09 (0.04-0.54); HEMATOCRIT 44.9 % (34.1-44.9); HEMOGLOBIN 14.6 g/dL (11.2-15.7); LYMPH # 2.37 (1.18-3.74); LYMPH % 26.1 % (19.3-53.1); MEAN CORPUSCULAR HEMOGLOBIN 28.3 pg (25.6-32.2); MONO % 7.7 % (4.7-12.5); NEUT # 5.85 (1.56-6.13); NEUT % 64.6 % (34.0-71.1); PLATELET COUNT 371 K/uL (163-369); RED BLOOD COUNT 5.15 M/uL (3.93-5.22); RED CELL DISTRIBUTION WIDTH 13.9 % (11.6-14.4)
[2025-05-03 10:35] LABS: CALCIUM 9.9 mg/dL (8.5-10.1); CREATININE SERUM 0.63 mg/dL (0.55-1.02); GFR 99.23; POTASSIUM 3.8 mEq/L (3.5-5.1)
[2025-05-03 11:17] LABS: URINE APPEARANCE Cloudy; URINE BILIRRUBIN Negative (NEGATIVE); URINE BLOOD Small; URINE COLOR Yellow; URINE GLUCOSE Negative (NEGATIVE); URINE KETONE Negative (NEGATIVE); URINE LEUKOCYTE Small; URINE NITRATE Negative; URINE PROTEIN Negative (NEGATIVE); URINE UROBILINOGEN 0.2 E.U./dl
[2025-05-03 11:40] LABS: URINE BACTERIA MODERATE; URINE CRYSTALS FEW /HPF; URINE EPITHELIAL CELLS LOADED /HPF
[2025-05-03 11:41] LABS: URINE MUCUS MODERATE
[2025-05-03] MEDS ORDERED: SUCRALFATE 1 G TABLET PO ONE (12:45)
== END 2025-05-03 14:18 | disposition home or self-care (01) ==
LOC: ER 14:18
PROVIDERS: Emergency Medicine
DX: K29.70 Gastritis, unspecified, without bleeding (principal); I10 Essential (primary) hypertension; I50.9 Heart failure, unspecified; Z88.6 Allergy status to analgesic agent; Z88.0 Allergy status to penicillin; Z88.2 Allergy status to sulfonamides; Z88.8 Allergy status to other drugs, medicaments and biological substances

== ENCOUNTER 2025-06-08 11:46 | Emergency (ER) | payer OTHER ==
[~2025-06-08] VITALS: Ht 162.6 cm; Wt 67.1 kg
[2025-06-08] MEDS ORDERED: DEXAMETHASONE SODIUM PHOSPHATE 4 MG/ML VIAL ONE (16:10)
[2025-06-08] MEDS ORDERED: DEXAMETHASONE SODIUM PHOSPHATE 4 MG/ML VIAL IM ONE (16:15)
[2025-06-08] MEDS ORDERED: ACETAMINOPHEN 500 MG GEL..CAP PO ONE ×2 (16:15→16:25)
[2025-06-08] MEDS ORDERED: DIPHENHYDRAMINE HCL 50 MG CAPSULE PO ONE (16:15)
[2025-06-08 16:49] LABS: BASO % 0.2 % (0.1-1.2); EOS # 0.00 (0.04-0.54); EOS % 0.0 % (0.7-7.0); LYMPH # 2.39 (1.18-3.74); LYMPH % 15.4 % (19.3-53.1); MEAN PLATELET VOLUME 9.60 fl (9.4-12.4); MONO # 1.72 (0.24-0.82); MONO % 11.1 % (4.7-12.5); NEUT # 11.32 (1.56-6.13); NEUT % 72.8 % (34.0-71.1); RED CELL DISTRIBUTION WIDTH 14.3 % (11.6-14.4)
[2025-06-08] MEDS ORDERED: DIPHENHYDRAMINE HCL 50 MG/ML VIAL 1ML IM STA (16:54)
[2025-06-08] MEDS ORDERED: DIPHENHYDRAMINE HCL 50 MG/ML VIAL 1ML ONE (16:54)
[2025-06-08 17:08] LABS: COVID-19 AG NEGATIVE (NEGATIVE)
[2025-06-08 17:22] LABS: ALT/SGPT 39.0 U/L (12-78); AST/SGOT 13.0 U/L (15-37); BILIRUBIN TOTAL 0.45 mg/dL (0.3-1.2); BUN CREA RATIO 17.0 (7.0-25.0); CREATININE SERUM 0.7 mg/dL (0.55-1.02); GFR 87.53; GLOBULINA 4.1 G/DL (2.4-3.5); GLUCOSE FASTING 85.0 mg/dL (65-100); OSMOLALITY SERUM 288.0 MOSM/KG (275-295)
[2025-06-08] MEDS ORDERED: CEFTRIAXONE SODIUM 1,000 MG VIAL IM STA (18:18)
[2025-06-08] MEDS ORDERED: CLINDAMYCIN PHOSPHATE 150 MG/ML (600mg) IM STA (18:31)
[2025-06-08] MEDS ORDERED: CLINDAMYCIN PHOSPHATE 150 MG/ML (300mg) ONE (18:40)
== END 2025-06-08 18:51 | disposition home or self-care (01) ==
LOC: ER 11:46
PROVIDERS: Preventive Medicine Public Health & General Preventive Medicine
DX: D72.829 Elevated white blood cell count, unspecified (principal); I10 Essential (primary) hypertension; Z20.822 Contact with and (suspected) exposure to COVID-19; Z88.6 Allergy status to analgesic agent; Z88.0 Allergy status to penicillin; Z88.2 Allergy status to sulfonamides; Z88.8 Allergy status to other drugs, medicaments and biological substances

== ENCOUNTER 2025-06-26 10:06 | Emergency (ER) | payer OTHER ==
[~2025-06-26] VITALS: Ht 162.6 cm; Wt 67.1 kg
[2025-06-26 12:33] LABS: BASO % 0.5 % (0.1-1.2); EOS # 0.11 (0.04-0.54); EOS % 1.3 % (0.7-7.0); LYMPH # 2.82 (1.18-3.74); LYMPH % 33.4 % (19.3-53.1); MEAN PLATELET VOLUME 9.10 fl (9.4-12.4); MONO # 0.64 (0.24-0.82); MONO % 7.6 % (4.7-12.5); NEUT # 4.80 (1.56-6.13); NEUT % 56.8 % (34.0-71.1); RED CELL DISTRIBUTION WIDTH 14.3 % (11.6-14.4)
[2025-06-26 13:01] LABS: COVID-19 AG POSITIVE (NEGATIVE)
[2025-06-26] MEDS ORDERED: DEXAMETHASONE SODIUM PHOSPHATE 4 MG/ML VIAL IM ONE (14:00)
[2025-06-26] MEDS ORDERED: DIPHENHYDRAMINE HCL 50 MG/ML VIAL 1ML IM ONE (14:00)
== END 2025-06-26 14:16 ==
LOC: ER 10:06
PROVIDERS: General Practice
DX: U07.1 COVID-19 (principal); I10 Essential (primary) hypertension; Z88.0 Allergy status to penicillin; Z88.2 Allergy status to sulfonamides; Z88.6 Allergy status to analgesic agent; Z91.013 Allergy to seafood; Z91.041 Radiographic dye allergy status; K21.9 Gastro-esophageal reflux disease without esophagitis; E78.49 Other hyperlipidemia; I49.8 Other specified cardiac arrhythmias; G43.909 Migraine, unspecified, not intractable, without status migrainosus

== ENCOUNTER 2025-07-13 15:41 | Emergency (ER) | payer OTHER ==
[~2025-07-13] VITALS: Ht 162.6 cm; Wt 67.1 kg
[2025-07-13 16:02] VITALS: BP 154/98; O2SAT 100
[2025-07-13] MEDS ORDERED: DIPHENHYDRAMINE HCL 50 MG/ML VIAL 1ML IM STA (17:06)
[2025-07-13] MEDS ORDERED: ORPHENADRINE CITRATE 30 MG/ML AMPUL IM STA (17:06)
[2025-07-13] MEDS ORDERED: DEXAMETHASONE SODIUM PHOSPHATE 4 MG/ML VIAL IM STA (17:06)
[2025-07-13] MEDS ORDERED: GABAPENTIN 100 MG CAPSULE PO STA (17:07)
[2025-07-13] MEDS ORDERED: DIPHENHYDRAMINE HCL 50 MG/ML VIAL 1ML ONE (17:39)
[2025-07-13] MEDS ORDERED: DEXAMETHASONE SODIUM PHOSPHATE 4 MG/ML VIAL ONE (17:40)
[2025-07-13] MEDS ORDERED: ORPHENADRINE CITRATE 30 MG/ML AMPUL ONE (17:40)
[2025-07-13] MEDS ORDERED: ZANAFLEX4 M1 PO (19:35)
[2025-07-13] MEDS ORDERED: MEDROLPACK PO (19:35)
[2025-07-13] MEDS ORDERED: GABAPENTIN100 M2 PO (19:35)
== END 2025-07-13 20:59 | disposition home or self-care (01) ==
LOC: ER 15:41
DX: M54.2 Cervicalgia (principal); Z88.0 Allergy status to penicillin; Z88.2 Allergy status to sulfonamides; Z91.013 Allergy to seafood; Z88.6 Allergy status to analgesic agent; E78.00 Pure hypercholesterolemia, unspecified; I10 Essential (primary) hypertension; G43.909 Migraine, unspecified, not intractable, without status migrainosus

== ENCOUNTER 2025-07-17 11:06 | Emergency (ER) | payer OTHER ==
[~2025-07-17] VITALS: Ht 162.6 cm; Wt 67.1 kg
[~2025-07-17 11:06] MED LIST changes: +GABAPENTIN100 M2 PO; +MEDROLPACK PO; +ZANAFLEX4 M1 PO
[2025-07-17] MEDS ORDERED: DEXAMETHASONE SODIUM PHOSPHATE 4 MG/ML VIAL IM ONE (13:00)
[2025-07-17] MEDS ORDERED: ORPHENADRINE CITRATE 30 MG/ML AMPUL IM ONE (13:00)
[2025-07-17] MEDS ORDERED: DIPHENHYDRAMINE HCL 50 MG/ML VIAL 1ML IM ONE (15:00)
== END 2025-07-17 15:14 ==
LOC: ER 11:06
DX: M62.838 Other muscle spasm (principal); M51.369 Other intervertebral disc degeneration, lumbar region without mention of lumbar back pain or lower extremity pain; Z88.6 Allergy status to analgesic agent; Z88.0 Allergy status to penicillin; Z88.2 Allergy status to sulfonamides; Z88.8 Allergy status to other drugs, medicaments and biological substances

== ENCOUNTER 2025-08-15 11:12 | Inpatient (IN) | payer OTHER ==
[~2025-08-15] VITALS: Ht 152.4 cm; Wt 68.0 kg
[2025-08-15] MEDS ORDERED: PANTOPRAZOLE SODIUM 40 MG/VIAL VIAL IV PUSH STA (13:15)
[2025-08-15] MEDS ORDERED: ONDANSETRON HCL 2 MG/ML VIAL IV STA (13:15)
[2025-08-15] MEDS ORDERED: 0.9 % SODIUM CHLORIDE 1,000 ML IV STA (13:16)
[2025-08-15] MEDS ORDERED: DIPHENHYDRAMINE HCL 50 MG/ML VIAL 1ML ONE (13:17)
[2025-08-15] MEDS ORDERED: DIPHENHYDRAMINE HCL 50 MG/ML VIAL 1ML IV STA (13:17)
[2025-08-15] MEDS ORDERED: ORPHENADRINE CITRATE 30 MG/ML AMPUL IM STA (13:17)
[2025-08-15] MEDS ORDERED: ORPHENADRINE CITRATE 30 MG/ML AMPUL ONE (13:18)
[2025-08-15 15:05] LABS: ALT/SGPT 43.0 U/L (12-78); AST/SGOT 15.0 U/L (15-37); BILIRUBIN TOTAL 0.38 mg/dL (0.3-1.2); BUN CREA RATIO 22.0 (7.0-25.0); CREATININE SERUM 0.72 mg/dL (0.55-1.02); GFR 84.73; GLOBULINA 3.4 G/DL (2.4-3.5); OSMOLALITY SERUM 292.0 MOSM/KG (275-295)
[2025-08-15 15:14] LABS: GLUCOSE FASTING 202.0 mg/dL (65-100)
[2025-08-15 16:27] LABS: BASO % 0.1 % (0.1-1.2); EOS # 0.00 (0.04-0.54); EOS % 0.0 % (0.7-7.0); LYMPH # 1.99 (1.18-3.74); LYMPH % 12.7 % (19.3-53.1); MEAN PLATELET VOLUME 8.70 fl (9.4-12.4); MONO # 1.29 (0.24-0.82); MONO % 8.2 % (4.7-12.5); NEUT # 12.26 (1.56-6.13); NEUT % 77.9 % (34.0-71.1); RED CELL DISTRIBUTION WIDTH 14.7 % (11.6-14.4)
[2025-08-15] MEDS ORDERED: ACETAMINOPHEN 500 MG GEL..CAP PO ONE ×2 (16:30→16:38)
[2025-08-15 18:17] LABS: URINE APPEARANCE Cloudy; URINE BILIRRUBIN Negative (NEGATIVE); URINE BLOOD Trace; URINE COLOR Yellow; URINE KETONE Negative (NEGATIVE); URINE LEUKOCYTE Trace; URINE NITRATE Negative; URINE PROTEIN Negative (NEGATIVE); URINE UROBILINOGEN 0.2 E.U./dl
[2025-08-15 18:21] LABS: URINE BACTERIA 2035.1 uL (0.0-1933); URINE EPITHELIAL CELLS 194.5 uL (0.0-38.8); URINE RBC 12.4 uL (0.0-20.8); URINE WBC 49.5 uL (0.0-23.2)
[2025-08-15 18:49] LABS: TYPE CELLS SQUAMOUS; URINE CAST 1.31 uL (0.0-1.40); URINE CRYSTALS FEW /HPF; URINE GLUCOSE 100 MG/DL (NEGATIVE); URINE MUCUS MODERATE
[2025-08-15] MEDS ORDERED: MORPHINE SULFATE 2 MG/ML SYRINGE IV ONE (19:15)
[2025-08-15] MEDS ORDERED: FAMOTIDINE/PF 20 MG/2 ML VIAL IV ONE (19:15)
[2025-08-15] MEDS ORDERED: FAMOTIDINE/PF 20 MG/2 ML VIAL ONE (21:19)
[2025-08-16] MEDS ORDERED: FAMOTIDINE/PF 20 MG in 0.9 % SODIUM CHLORIDE 8 ML IV PUSH SCH (00:03)
[2025-08-16] MEDS ORDERED: 0.9 % SODIUM CHLORIDE 1,000 ML IV SCH (00:15)
[2025-08-16] MEDS ORDERED: DIPHENHYDRAMINE HCL 50 MG/ML VIAL 1ML IV PRN (00:15)
[2025-08-16] MEDS ORDERED: PROMETHAZINE HCL 25 MG/ML AMPUL IM ONE (00:15)
[2025-08-16] MEDS ORDERED: DIPHENHYDRAMINE HCL 50 MG/ML VIAL 1ML IV ONE (00:15)
[2025-08-16] MEDS ORDERED: ORPHENADRINE CITRATE 30 MG/ML AMPUL IM ONE (00:15)
[2025-08-16] MEDS ORDERED: METHYLPREDNISOLONE SOD SUCC 125 MG VIAL IV PRN (00:15)
[2025-08-16] MEDS ORDERED: ACETAMINOPHEN 500 MG GEL..CAP PO PRN (00:15)
[2025-08-16] MEDS ORDERED: ONDANSETRON HCL 4 MG in 0.9 % SODIUM CHLORIDE 50 ML IV PRN (00:15)
[2025-08-16] MEDS ORDERED: ACETAMINOPHEN 500 MG GEL..CAP PO ONE (00:57)
[2025-08-16] MEDS ORDERED: DIPHENHYDRAMINE HCL 50 MG/ML VIAL 1ML ONE (01:09)
[2025-08-16] MEDS ORDERED: ORPHENADRINE CITRATE 30 MG/ML AMPUL ONE (01:10)
[2025-08-16] MEDS ORDERED: PROMETHAZINE HCL 25 MG/ML AMPUL ONE (01:11)
[2025-08-16] MEDS ORDERED: FAMOTIDINE/PF 20 MG/2 ML VIAL ONE (01:11)
[2025-08-16] MEDS ORDERED: MEROPENEM 500 MG/VIAL VIAL IV SCH (02:00)
[2025-08-16 05:10] VITALS: BP 143/82; O2SAT 97
[2025-08-16 08:00] VITALS: BP 163/99; O2SAT 98
[2025-08-16] MEDS ORDERED: METOPROLOL SUCCINATE 100 MG TAB.SR.24H PO SCH ×2 (09:00)
[2025-08-16] MEDS ORDERED: ENOXAPARIN SODIUM 40 MG/0.4 ML SYRINGE SUBCUTANEO SCH (09:00)
[2025-08-16] MEDS ORDERED: LOSARTAN POTASSIUM 100 MG TABLET PO SCH (09:00)
[2025-08-16] MEDS ORDERED: ROSUVASTATIN CALCIUM 20 MG TABLET PO SCH (09:00)
[2025-08-16] MEDS ORDERED: ONDANSETRON HCL 2 MG/ML VIAL ONE (09:36)
[2025-08-16] MEDS ORDERED: MORPHINE SULFATE 4 MG/ML CARTRIDGE IV PRN (14:30)
[2025-08-16] MEDS ORDERED: AMLODIPINE BESYLATE 5 MG TABLET PO STA ×2 (16:23→19:08)
[2025-08-16] MEDS ORDERED: SODIUM CHLORIDE 0.45 % 1,000 ML IV SCH (16:30)
[2025-08-16 16:37] VITALS: BP 150/90; O2SAT 99
[2025-08-16 19:00] VITALS: BP 164/103
[2025-08-16 21:26] VITALS: BP 144/92
[2025-08-17 00:25] VITALS: BP 159/96; O2SAT 98
[2025-08-17 08:00] VITALS: BP 160/100
[2025-08-17 13:00] VITALS: BP 170/98; O2SAT 97
[2025-08-17] MEDS ORDERED: ENALAPRILAT DIHYDRATE 1.25 MG/ML VIAL IV PRN (14:15)
[2025-08-17 16:13] VITALS: BP 135/87; O2SAT 95
[2025-08-17] MEDS ORDERED: AMLODIPINE BESYLATE 5 MG TABLET PO SCH (17:00)
[2025-08-17] MEDS ORDERED: DEXTROSE 50 % IN WATER 0.5 G/ML DISP.SYRIN IV PRN (18:45)
[2025-08-17] MEDS ORDERED: DEXTROSE 5 %-0.45 % SOD CHLORD 1,000 ML IV SCH (18:45)
[2025-08-17] MEDS ORDERED: INSULIN LISPRO 1,000 UNIT/10 ML UNITS SUBCUTANEO PRN (18:45)
[2025-08-17] MEDS ORDERED: DIPHENHYDRAMINE HCL 25 MG in 0.9 % SODIUM CHLORIDE 25 ML IV PRN (21:00)
[2025-08-17] MEDS ORDERED: DIPHENHYDRAMINE HCL 50 MG/ML VIAL 1ML ONE (21:58)
[2025-08-17 22:38] LABS: INR 0.99
[2025-08-18 00:35] VITALS: BP 139/80; O2SAT 97
[2025-08-18 06:31] LABS: BASO % 0.5 % (0.1-1.2); EOS # 0.10 (0.04-0.54); EOS % 1.2 % (0.7-7.0); LYMPH # 2.09 (1.18-3.74); LYMPH % 25.2 % (19.3-53.1); MEAN PLATELET VOLUME 9.10 fl (9.4-12.4); MONO # 0.76 (0.24-0.82); MONO % 9.2 % (4.7-12.5); NEUT # 5.25 (1.56-6.13); NEUT % 63.2 % (34.0-71.1); RED CELL DISTRIBUTION WIDTH 14.6 % (11.6-14.4)
[2025-08-18 07:02] LABS: ALT/SGPT 36.0 U/L (12-78); AST/SGOT 14.0 U/L (15-37); BILIRUBIN TOTAL 0.75 mg/dL (0.3-1.2); BUN CREA RATIO 19.0 (7.0-25.0); CREATININE SERUM 0.47 mg/dL (0.55-1.02); GFR 138.61; GLOBULINA 2.9 G/DL (2.4-3.5); GLUCOSE FASTING 97.0 mg/dL (65-100); OSMOLALITY SERUM 274.0 MOSM/KG (275-295)
[2025-08-18] MEDS ORDERED: PATIENTS OWN MEDICATION (MEDICAMENTO EN PISO) PO SCH (09:00)
[2025-08-18 16:21] VITALS: BP 145/102; O2SAT 98
[2025-08-18] MEDS ORDERED: MORPHINE SULFATE 2 MG/ML SYRINGE IV PRN (23:15)
[2025-08-19] MEDS ORDERED: ENOXAPARIN SODIUM 80 MG/0.8 ML SYRINGE SUBCUTANEO SCH (00:47)
[2025-08-19 01:21] VITALS: BP 181/109; O2SAT 97
[2025-08-19] MEDS ORDERED: DIPHENHYDRAMINE HCL 50 MG/ML VIAL 1ML ONE (02:14)
[2025-08-19 10:15] VITALS: BP 119/80; O2SAT 97
[2025-08-19 16:00] VITALS: BP 141/96; O2SAT 96
[2025-08-20 00:42] VITALS: BP 142/90; O2SAT 97
[2025-08-20 08:00] VITALS: BP 170/100; O2SAT 98
[2025-08-20] MEDS ORDERED: HYOSCYAMINE SULFATE 0.125 MG TAB.SUBL SL NR (11:00)
[2025-08-20] MEDS ORDERED: PANTOPRAZOLE SODIUM 40 MG TABLET.DR PO NR (11:00)
[2025-08-20] MEDS ORDERED: LOSARTAN POTAS100 MG PO (13:16)
[2025-08-20] MEDS ORDERED: TOPROL XL100 M1 PO (13:17)
[2025-08-20] MEDS ORDERED: ROSUVASTATIN CA20 MG PO (13:17)
[2025-08-20] MEDS ORDERED: PANTOPRAZOLE SO40 MG PO (13:17)
[2025-08-20] MEDS ORDERED: PANTOPRAZOLE SODIUM 40 MG TABLET.DR PO SCH (17:00)
[2025-08-20] MEDS ORDERED: HYOSCYAMINE SULFATE 0.125 MG TAB.SUBL SL SCH (17:00)
== END 2025-08-20 14:45 | disposition home or self-care (01) | DRG 690 ==
LOC: ER 11:12 → SURH 08-16 00:06 → SURG 08-16 00:06 → SURH 08-16 02:02
PROVIDERS: General Practice; Internal Medicine Infectious Disease; ADMIT Internal Medicine; ATTEND Internal Medicine
PROC: BW21YZZ Computerized Tomography (CT Scan) of Abdomen and Pelvis using Other Contrast (ICD-10-PCS; principal; 2025-08-15)
PROC: 02HV33Z Insertion of Infusion Device into Superior Vena Cava, Percutaneous Approach (ICD-10-PCS; 2025-08-17)
PROC: B54NZZZ Ultrasonography of Left Upper Extremity Veins (ICD-10-PCS; 2025-08-19)
DX: N39.0 Urinary tract infection, site not specified (principal); I10 Essential (primary) hypertension; K21.9 Gastro-esophageal reflux disease without esophagitis; K57.90 Diverticulosis of intestine, part unspecified, without perforation or abscess without bleeding; D72.829 Elevated white blood cell count, unspecified

== ENCOUNTER 2025-10-05 11:38 | Emergency (ER) | payer OTHER ==
[~2025-10-05] VITALS: Ht 162.6 cm; Wt 67.1 kg
[~2025-10-05 11:38] MED LIST changes: +LOSARTAN POTAS100 MG PO; +PANTOPRAZOLE SO40 MG PO; +ROSUVASTATIN CA20 MG PO
[2025-10-05 12:10] VITALS: BP 138/91; O2SAT 99
[2025-10-05] MEDS ORDERED: 0.9 % SODIUM CHLORIDE 1,000 ML IV STA (13:31)
[2025-10-05] MEDS ORDERED: DIPHENHYDRAMINE HCL 50 MG/ML VIAL 1ML IV ONE (13:45)
[2025-10-05] MEDS ORDERED: METRONIDAZOLE/SODIUM CHLORIDE 500 MG/100 ML PIGGYBACK IV ONE (13:45)
[2025-10-05] MEDS ORDERED: FAMOTIDINE/PF 20 MG/2 ML VIAL IV ONE (13:45)
[2025-10-05] MEDS ORDERED: METHYLPREDNISOLONE SOD SUCC 125 MG VIAL IV ONE (13:45)
[2025-10-05] MEDS ORDERED: ONDANSETRON HCL 2 MG/ML VIAL IV ONE (13:45)
[2025-10-05] MEDS ORDERED: MORPHINE SULFATE 4 MG/ML CARTRIDGE IV ONE (13:45)
[2025-10-05] MEDS ORDERED: DIPHENHYDRAMINE HCL 50 MG/ML VIAL 1ML ONE (13:49)
[2025-10-05] MEDS ORDERED: METHYLPREDNISOLONE SOD SUCC 125 MG VIAL ONE (13:49)
[2025-10-05] MEDS ORDERED: ONDANSETRON HCL 2 MG/ML VIAL ONE (13:49)
[2025-10-05] MEDS ORDERED: FAMOTIDINE/PF 20 MG/2 ML VIAL ONE (13:49)
[2025-10-05 14:37] LABS: ERYTHROCYTE SEDIMENTATION RATE 48 mm/hr (0-30)
[2025-10-05 14:39] LABS: BASO % 0.3 % (0.1-1.2); EOS # 0.05 (0.04-0.54); EOS % 0.4 % (0.7-7.0); LYMPH # 2.25 (1.18-3.74); LYMPH % 19.8 % (19.3-53.1); MEAN PLATELET VOLUME 8.80 fl (9.4-12.4); MONO # 0.79 (0.24-0.82); MONO % 7.0 % (4.7-12.5); NEUT # 8.19 (1.56-6.13); NEUT % 72.2 % (34.0-71.1); RED CELL DISTRIBUTION WIDTH 14.0 % (11.6-14.4)
[2025-10-05 15:06] LABS: ALT/SGPT 32.0 U/L (12-78); AST/SGOT 15.0 U/L (15-37); BILIRUBIN TOTAL 0.58 mg/dL (0.3-1.2); BILIRUBIN,CONJUGATED 0.13 mg/dL (0.0-0.2); BUN CREA RATIO 25.0 (7.0-25.0); CREATININE SERUM 0.59 mg/dL (0.55-1.02); GFR 106.62; GLUCOSE FASTING 121.0 mg/dL (65-100); OSMOLALITY SERUM 289.0 MOSM/KG (275-295)
[2025-10-05 15:39] LABS: INR 0.96
[2025-10-05 15:54] LABS: URINE APPEARANCE Clear; URINE BILIRRUBIN Negative (NEGATIVE); URINE BLOOD Negative; URINE COLOR Yellow; URINE GLUCOSE Negative (NEGATIVE); URINE KETONE Negative (NEGATIVE); URINE LEUKOCYTE Negative; URINE NITRATE Negative; URINE PROTEIN Negative (NEGATIVE); URINE UROBILINOGEN 0.2 E.U./dl
[2025-10-05 15:55] LABS: URINE BACTERIA 45.5 uL (0.0-1933); URINE EPITHELIAL CELLS 10.1 uL (0.0-38.8); URINE RBC 3.9 uL (0.0-20.8); URINE WBC 3.5 uL (0.0-23.2)
[2025-10-05 16:11] LABS: URINE CAST 0.00 uL (0.0-1.40)
[2025-10-05] MEDS ORDERED: PROMETHAZINE HCL 50 MG/ML AMPUL IM ONE ×2 (17:00→17:06)
== END 2025-10-05 17:46 | disposition home or self-care (01) ==
LOC: ER 11:39
PROVIDERS: General Practice
DX: R10.30 Lower abdominal pain, unspecified (principal); R10.9 Unspecified abdominal pain; R11.0 Nausea; Z88.0 Allergy status to penicillin; Z88.2 Allergy status to sulfonamides; Z88.6 Allergy status to analgesic agent; Z91.041 Radiographic dye allergy status
CPT/HCPCS: 36415; 74177; Q9965

== ENCOUNTER 2025-11-02 13:09 | Emergency (ER) | payer OTHER ==
[~2025-11-02] VITALS: Ht 162.6 cm; Wt 67.1 kg
[2025-11-02] MEDS ORDERED: FAMOTIDINE/PF 20 MG/2 ML VIAL IV ONE (15:45)
[2025-11-02] MEDS ORDERED: ONDANSETRON HCL 2 MG/ML VIAL IV ONE (15:45)
[2025-11-02] MEDS ORDERED: MORPHINE SULFATE 4 MG/ML VIAL IV ONE (15:45)
[2025-11-02 17:38] LABS: URINE APPEARANCE Clear; URINE BILIRRUBIN Negative (NEGATIVE); URINE BLOOD Negative; URINE COLOR Yellow; URINE GLUCOSE Negative (NEGATIVE); URINE KETONE Trace (NEGATIVE); URINE LEUKOCYTE Trace; URINE NITRATE Negative; URINE PROTEIN Trace (NEGATIVE); URINE UROBILINOGEN 1.0 E.U./dl
[2025-11-02 17:41] LABS: URINE BACTERIA 1536.2 uL (0.0-1933); URINE EPITHELIAL CELLS 63.4 uL (0.0-38.8); URINE RBC 18.4 uL (0.0-20.8); URINE WBC 11.9 uL (0.0-23.2)
[2025-11-02 17:58] LABS: ALT/SGPT 36.0 U/L (12-78); AST/SGOT 20.0 U/L (15-37); BILIRUBIN TOTAL 0.53 mg/dL (0.3-1.2); BUN CREA RATIO 28.0 (7.0-25.0); CREATININE SERUM 0.5 mg/dL (0.55-1.02); GFR 129.06; GLOBULINA 4.3 G/DL (2.4-3.5); GLUCOSE FASTING 94.0 mg/dL (65-100); OSMOLALITY SERUM 287.0 MOSM/KG (275-295)
[2025-11-02 18:11] LABS: TYPE CELLS SQUAMOUS; URINE CAST 0.56 uL (0.0-1.40); URINE MUCUS HEAVY
== END 2025-11-02 19:10 | disposition home or self-care (01) ==
LOC: ER 13:10
PROVIDERS: General Practice
DX: R35.0 Frequency of micturition (principal); R10.10 Upper abdominal pain, unspecified; Z88.6 Allergy status to analgesic agent; Z88.4 Allergy status to anesthetic agent; Z88.0 Allergy status to penicillin; Z88.2 Allergy status to sulfonamides; I10 Essential (primary) hypertension